=== PATIENT | female | born 1935 | race Caucasian/White ===

== ENCOUNTER → 2017-11-25 | Outpatient (CLI) | payer OTHER, MEDICARE | END | disposition home or self-care (01) | LOC: SHCH 15:52 | PROVIDERS: ATTEND Internal Medicine Cardiovascular Disease | DX: I51.7 Cardiomegaly (principal); I10 Essential (primary) hypertension | CPT/HCPCS: 93306 ==

== ENCOUNTER 2020-01-13 10:42 | Inpatient (IN) | payer OTHER, MEDICARE ==
[~2020-01-13] VITALS: Ht 162.6 cm; Wt 71.5 kg
[2020-01-13] MEDS ORDERED: ONDANSETRON HCL 4 MG/2 ML VIAL IVP PRN (15:15)
[2020-01-13] MEDS ORDERED: HYDRALAZINE HCL 20 MG/ML VIAL IV PRN (15:15)
[2020-01-13] MEDS ORDERED: LABETALOL 20 MG/4 ML DISP.SYRIN IV PRN (15:15)
[2020-01-13] MEDS ORDERED: LACTULOSE 20 GM/30 ML UDCUP PO PRN (15:15)
[2020-01-13] MEDS ORDERED: ZOLPIDEM TARTRATE 5 MG TAB PO PRN (15:15)
[2020-01-13] MEDS ORDERED: LOPERAMIDE HCL 2 MG CAP PO PRN (15:15)
[2020-01-13] MEDS: SODIUM CHLORIDE 0.9% 1000ML 1,000 ML IV SCH (15:15)
[2020-01-13] MEDS ORDERED: IPRATROPIUM/ALBUTEROL SULFATE 3 ML SOLUTION IH PRN (15:15)
[2020-01-13] MEDS: ZOSYN 3.375GM+NS 50ML 50 ML IV SCH (16:00)
[2020-01-13] MEDS ORDERED: ZOSYN 3.375GM+NS 50ML 50 ML IV ONE (16:45)
[2020-01-13] MEDS ORDERED: ONDANSETRON HCL 4 MG/2 ML VIAL ONE (22:54)
[2020-01-14] MEDS: ZOSYN 3.375GM+NS 50ML 50 ML IV SCH ×2 (04:00→16:00)
[2020-01-14] MEDS ORDERED: ZOSYN 3.375GM+NS 50ML 50 ML IV ONE ×2 (04:36→16:25)
[2020-01-14] MEDS: PANTOPRAZOLE SODIUM 40 MG TABLET.DR PO SCH (09:00)
--- NOTE | 2020-01-14 13:14 | NUR ---
DCP: HOME SW spoke to pt who states she lives independently at home alone. Pt states she has no DME or HH services, drives herself, PCP is Fatoumata Long at [facility] and she uses [facility] [employer]. Addendum: 01/14/20 at 1329 by LEONARDA DÍAZ SS Amended: Links added.
[2020-01-14] MEDS: SODIUM CHLORIDE 0.9% 1000ML 1,000 ML IV SCH (17:55)
[2020-01-15] VITALS (17 sets, daily range): BP systolic 105–149; BP diastolic 54–80; PULSE 76–84; RESP 16–20; TEMP 96.5–97.9
[2020-01-15] MEDS ORDERED: ZOSYN 3.375GM+NS 50ML 50 ML IV ONE ×2 (01:11→09:12)
[2020-01-15] MEDS: ZOSYN 3.375GM+NS 50ML 50 ML IV SCH ×2 (04:00→16:00)
[2020-01-15] MEDS: SODIUM CHLORIDE 0.9% 1000ML 1,000 ML IV SCH ×3 (07:15→21:18)
--- NOTE | 2020-01-15 07:36 | NUR ---
pt.still in ER,01/12, 01/13,01/15/2020.Awaiting patient to be transferred to regular medical floor to be able to initiate skilled Physical Therapy Evaluation as ordered by Heather Puente [facility] Addendum: 01/15/20 at 0739 by BRIE SAN, PT PT Amended: Links added.
[2020-01-15] MEDS: PANTOPRAZOLE SODIUM 40 MG TABLET.DR PO SCH (09:00)
[2020-01-15] MEDS ORDERED: PANTOPRAZOLE SODIUM 40 MG TABLET.DR ONE (09:12)
[2020-01-15] MEDS ORDERED: PROPOFOL 10 MG/ML 20ML VIAL IV ONE (11:14)
[2020-01-15] MEDS ORDERED: LIDOCAINE HCL 2% 20ML ONE (11:15)
[2020-01-15] MEDS ORDERED: MIDAZOLAM HCL 1 MG/ML 2ML VIAL ONE (11:15)
[2020-01-15] MEDS ORDERED: SUCCINYLCHOLINE 200MG/10ML SYR ONE (11:15)
[2020-01-15] MEDS ORDERED: FENTANYL CITRATE PF 50 MCG/1 ML 2ML VIAL ONE ×2 (11:15→11:58)
[2020-01-15] MEDS ORDERED: IOHEXOL-350 50ML VIAL IV ONE (11:25)
[2020-01-15] MEDS ORDERED: GLUCAGON 1MG KIT 1 MG ML ONE (11:30)
[2020-01-15] MEDS: INDOMETHACIN 50 MG SUPP.RECT RC SCH (12:05)
[2020-01-15] MEDS ORDERED: LACTATED RINGERS 1000ML 1,000 ML IV ONE (15:51)
--- NOTE | 2020-01-15 22:40 | NUR ---
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 WILL ENDORSE TO [facility] FOR TRANSFER PROCEEDINGS(MOT ETC.),PENDING OFFICIAL MD ORDER TO TRANSFER. Addendum: 01/16/20 at 0633 by CATIA ACEVEDO RN RN Amended: Links added.
[2020-01-16] VITALS (9 sets, daily range): BP systolic 120–143; BP diastolic 68–77; PULSE 91–97; RESP 16–20; TEMP 97.7–98.9
[2020-01-16] MEDS: ZOSYN 3.375GM+NS 50ML 50 ML IV SCH ×2 (03:11→16:25)
--- NOTE | 2020-01-16 07:30 | NUR ---
SURGICAL CONSULT DR Berg here spoke with pt about the plan of care ,also spoke with daughter Hoda Blanco concerning her Mothers plan of care and possible surgery on Saturday if the hepatic function test decreases,daughter and pt agree to plan
[2020-01-16] MEDS: PANTOPRAZOLE SODIUM 40 MG TABLET.DR PO SCH (10:32)
[2020-01-16] MEDS: INDOMETHACIN 50 MG SUPP.RECT RC SCH (11:30)
[2020-01-16] MEDS: SODIUM CHLORIDE 0.9% 1000ML 1,000 ML IV SCH (19:49)
--- NOTE | 2020-01-16 19:55 | NUR ---
PM Assessment Received pt, pleasantly conversant, denies discomfort. Routine assessment done, plan of care discuss, aware plan for surgery on Saturday. Pt made aware now on a diet as reported, heart health.
[2020-01-17] VITALS (9 sets, daily range): BP systolic 108–142; BP diastolic 61–78; PULSE 89–99; RESP 16–20; TEMP 97.9–99.1
[2020-01-17] MEDS: ZOSYN 3.375GM+NS 50ML 50 ML IV SCH ×2 (04:28→16:29)
--- NOTE | 2020-01-17 07:45 | NUR ---
NOTE AAOX3. DENIES PAIN OR DISCOMFORT. SHE REMAINS NPO. SHE IS JAUNDICE. TOTAL BILI WENT UP TO 12 TODAY. PATIENT REPORTS DARK COLOR URINE WELL BUT NO URINARY SYMPTOM. EXPLAINED TO HER THE REASON FOR THAT IS THE ELEVATED BILI LEVELS. WE ARE WAITING OR DR HIRSCH TO SEE IF PATIENT WILL HAVE SURGERY TOMORROW TO REMOVE GALLBLADDER.
[2020-01-17] MEDS: PANTOPRAZOLE SODIUM 40 MG TABLET.DR PO SCH (09:11)
[2020-01-17] MEDS: INDOMETHACIN 50 MG SUPP.RECT RC SCH (11:30)
[2020-01-17] MEDS: CETIRIZINE HCL 5 MG TABLET PO SCH (12:45)
[2020-01-17] MEDS: SODIUM CHLORIDE 0.9% 1000ML 1,000 ML IV SCH (12:46)
[2020-01-17] MEDS: FLUTICASONE PROPIONATE 50MCG/SPRAY 16 GM BOTTLE EN SCH (12:46)
--- NOTE | 2020-01-17 18:02 | NUR ---
NOTE PATIENT REMAINS STABLE, NO PAIN. NPO. SHE HAD MRCP THIS AM AND RESULTS WERE RELAYED TO DR HIRSCH FOR THEY WOULD DETERMINE WHETHER PATIENT WOULD UNDERGO CHOLECYSTECTOMY TOMORROW BUT DR HIRSCH GAVE ME AN ORDER TO NOTIFY PRIMARY TEAM OF HER RECOMMENDATIONS TO TRANSFER PATIENT TO ANOTHER FACILITY. I EXPLAINED TO THE PATIENT WHAT THE PLAN WAS NOW AND SHE IS VERY UNDERSTANDING. ALSO JUST FINISHED TALKING TO HER DAUGHTER WHO IS A NURSE IN ANOTHER FACILITY AND SHE WOULD LIKE TO SPEAK TO DR HIRSCH. I RELAYED THE MESSAGE TO DR HIRSCH WELL. I FAXED TRANSFER ORDER AND SPOKE TO GE [employer]FT LOAD CONTROLLER. HE WILL START PROCESS OF LOOKING FOR ACCEPTING PHYSICIAN.
[2020-01-17] MEDS: HYDROMORPHONE HCL 0.5 MG/0.5 ML ML IVP PRN (20:06)
[2020-01-18] VITALS (7 sets, daily range): BP systolic 133–153; BP diastolic 70–78; PULSE 85–96; RESP 18; TEMP 97.8–99.4
[2020-01-18] MEDS: HYDROMORPHONE HCL 0.5 MG/0.5 ML ML IVP PRN ×2 (01:01→19:28)
[2020-01-18] MEDS: SODIUM CHLORIDE 0.9% 1000ML 1,000 ML IV SCH ×2 (03:09→15:29)
[2020-01-18] MEDS: ZOSYN 3.375GM+NS 50ML 50 ML IV SCH ×2 (03:12→15:29)
[2020-01-18] MEDS: FLUTICASONE PROPIONATE 50MCG/SPRAY 16 GM BOTTLE EN SCH (08:58)
[2020-01-18] MEDS: PANTOPRAZOLE SODIUM 40 MG TABLET.DR PO SCH (08:59)
[2020-01-18] MEDS: CETIRIZINE HCL 5 MG TABLET PO SCH (08:59)
[2020-01-18] MEDS ORDERED: CETIRIZINE HCL 5 MG TABLET PO SCH (09:00)
[2020-01-18] MEDS: INDOMETHACIN 50 MG SUPP.RECT RC SCH (10:26)
--- NOTE | 2020-01-18 11:40 | NUR ---
MD ROUNDS DR. HIRSCH STATED PATIENT NEEDS TO TRANSFER TO [facility] FOR HEPATOBILIARY SURGEON FOR CHOLECYSTECTOMY. PER DR. HIRSCH, PATIENT MAY REQUIRE RESECTION OF THE BILIARY DUCT DUE TO POSSIBLE OBSTRUCTION. WHICH DR. HIRSCH STATED COULD NOT PERFORM. DENTAL ASSISTING INSTRUCTOR AND CHARGE NURSE MADE AWARE.
--- NOTE | 2020-01-18 14:37 | NUR ---
SPOKE TO DR. HIRSCH TO REPORT NO BEDS AVAILABLE AT [facility]. DR. HIRSCH STATED SHE WAS ALREADY NOTIFIED BY SHEEP AND WHEAT FARMER AND HAS CALLED DR. HOLLIDAY (HEPATOBILIARY SURGEON FROM [facility]) SEVERAL TIMES AND HAS NOT BE ABLE TO COMMUNICATE WITH HIM AT THIS TIME.
[2020-01-19] VITALS (24 sets, daily range): BP systolic 113–142; BP diastolic 63–80; PULSE 70–86; RESP 15–19; TEMP 97.1–98.5
[2020-01-19] MEDS: HYDROMORPHONE HCL 0.5 MG/0.5 ML ML IVP PRN (01:02)
[2020-01-19] MEDS: ZOSYN 3.375GM+NS 50ML 50 ML IV SCH ×2 (03:15→16:47)
[2020-01-19] MEDS: SODIUM CHLORIDE 0.9% 1000ML 1,000 ML IV SCH (04:58)
--- NOTE | 2020-01-19 05:48 | NUR ---
NO BOWEL MOVEMENT PATIENT UNABLE TO HAVE A BOWEL MOVEMENT POST LACTULOSE PO. PATIENT ASKED IF I COULD DIGITALLY DISIMPACT HER. I DID CHECK HER DIGITALLY WITH MY FEMALE PCP AT MY SIDE AND I DID FIND HARD IMPACTED STOOL. I PROCEEDED TO REMOVE HARD STOOL AND WAS ABLE TO REMOVE A MODERATE AMOUNT OF STOOL WHICH GAVE PATIENT RELIEF OF DISCOMFORT. WILL MONITOR IF PATIENT CAN HAVE A STOOL ON HER OWN.
[2020-01-19] MEDS ORDERED: POTASSIUM CHLORIDE 20MEQ/100ML 100 ML IV ONE (08:24)
[2020-01-19] MEDS ORDERED: LIDOCAINE HCL-MPF 1% 2ML VIAL ONE (08:24)
--- NOTE | 2020-01-19 08:33 | NUR ---
PROCEDURE PATIENT TRANSFERRED TO GI LAB BY IDA CURIEL FOR ERCP PROCEDURE BY DR. HUNTER.
--- NOTE | 2020-01-19 08:40 | NUR ---
POTASSIUM 20MEQ IV AND LIDOCAINE 1% GIVEN TO IDA CURIEL FROM GI LAB TO ADMINISTER BEFORE PROCEDURE FOR POTASSIUM LEVEL OF 3.[address] HUNTER.
[2020-01-19] MEDS: PANTOPRAZOLE SODIUM 40 MG TABLET.DR PO SCH (09:00)
[2020-01-19] MEDS: CETIRIZINE HCL 5 MG TABLET PO SCH (09:00)
[2020-01-19] MEDS: LIDOCAINE HCL-MPF 1% 2ML VIAL IV SCH (09:15)
[2020-01-19] MEDS ORDERED: POTASSIUM CHLORIDE 20 MEQ/100 ML BAG IV SCH (09:15)
[2020-01-19] MEDS ORDERED: PROPOFOL 10 MG/ML 20ML VIAL IV ONE (10:01)
[2020-01-19] MEDS ORDERED: IOHEXOL-350 50ML VIAL IV ONE (10:01)
[2020-01-19] MEDS ORDERED: SUCCINYLCHOLINE 200MG/10ML SYR ONE (10:02)
[2020-01-19] MEDS ORDERED: FENTANYL CITRATE PF 50 MCG/1 ML 2ML VIAL ONE ×2 (10:02→10:36)
[2020-01-19] MEDS ORDERED: MIDAZOLAM HCL 1 MG/ML 2ML VIAL ONE (10:02)
[2020-01-19] MEDS: INDOMETHACIN 50 MG SUPP.RECT RC SCH ×3 (10:40→12:59)
--- NOTE | 2020-01-19 11:35 | NUR ---
PROCEDURE REPORT RECEIVED FROM KIEL RN (PACU). PATIENT S/P ERCP UNDER GENERAL ANESTHESIA BY DR. HUNTER. BILIARY STENT PLACED IN CBD AND STENT IN GOOD POSITION. PATIENT STABLE AT THIS TIME.
--- NOTE | 2020-01-19 14:01 | NUR ---
REPORTED ERCP RESULTS TO DR. HIRSCH. STATED PATIENT WILL STILL NEED TO TRANSFERRED TO [facility] FOR SURGERY.
[2020-01-19] MEDS: FLUTICASONE PROPIONATE 50MCG/SPRAY 16 GM BOTTLE EN SCH (16:46)
[2020-01-20] VITALS (7 sets, daily range): BP systolic 126–140; BP diastolic 62–74; PULSE 75–96; RESP 17–20; TEMP 97.7–99.1
[2020-01-20] MEDS: ZOSYN 3.375GM+NS 50ML 50 ML IV SCH ×2 (03:14→15:26)
[2020-01-20] MEDS: SODIUM CHLORIDE 0.9% 1000ML 1,000 ML IV SCH ×3 (03:14→15:27)
[2020-01-20] MEDS: LIDOCAINE HCL-MPF 1% 2ML VIAL IV SCH (08:47)
[2020-01-20] MEDS: INDOMETHACIN 50 MG SUPP.RECT RC SCH (08:47)
[2020-01-20] MEDS: CETIRIZINE HCL 5 MG TABLET PO SCH (08:47)
[2020-01-20] MEDS: PANTOPRAZOLE SODIUM 40 MG TABLET.DR PO SCH (08:48)
[2020-01-20] MEDS: FLUTICASONE PROPIONATE 50MCG/SPRAY 16 GM BOTTLE EN SCH (09:32)
--- NOTE | 2020-01-20 10:51 | NUR ---
RD NOTIFICATION Pt NPO x 6 days. Pending procedure, to be transferred for higher level of care. Pt with normal bowel sounds. Abnormal LFT's, Cholecystitis, possible impacted biliary duct as per EMR. Recommend advance diet to Clear Liquid, Fat Free, Ensure Clear TID. Recommend advance diet as tolerated, to remain Low fat or Fat Free, Adv as medically feasible. Pt pending Procedure, unknown procedure date. Recommend PN if oral diet not medically feasible. RD to continue to monitor. Please notify/Contact as additional nutrition concerns arise. Thank you. Addendum: 01/20/20 at [address] RD Amended: Links added.
--- NOTE | 2020-01-20 11:47 | NUR ---
SPOKE WITH LISA, JAMESECE REGARDING NUTRITION AND ICE CHIPS. SHE CALLED AND WAS UPSET BECAUSE PT HAD NOT EATEN FOR 2 WEEKS. INFORMED LISA HAD INFORMED PT'S DAUGHTER, DAMIEN MEZA, OF CONSULTING DIETARY FOR TPN/PPN RECOMMENDATION AND INFORMED LISA SPOKE WITH PRIMARY DOCTOR AND MADE AWARE OF CONSULT. ALSO, MADE LISA AWARE OF NOTIFYING PRIMARY CARE, [facility], OF REQUEST TO CALL DAMIEN MEZA TODAY AFTER 4:30 P.M. NOTIFIED LISA LEFT HER PHONE NUMBER WELL JUST IN CASE OF MISSED CALL. INFORMED ASKED IF PATIENT COULD HAVE ICE CHIPS AND [facility] SAID TO ASK SURGEON. INFORMED LISA WAITING ON SURGEON TO CALL BACK TO ASK. WILL CONTINUE TO FOLLOW.
--- NOTE | 2020-01-20 12:03 | NUR ---
CALLED LISA AND INFORMED HER OF OK TO START CLEAR LIQUIDS PER DR. HIRSCH.
[2020-01-20] MEDS ORDERED: IOHEXOL-350 75 ML VIAL IV ONE (15:22)
[2020-01-20] MEDS: HYDROMORPHONE HCL 0.5 MG/0.5 ML ML IVP PRN (19:36)
[2020-01-21] VITALS: BP 143/69; PULSE 95; RESP 18; TEMP 99.3
[2020-01-21] MEDS: HYDROMORPHONE HCL 0.5 MG/0.5 ML ML IVP PRN ×2 (01:55→05:19)
[2020-01-21] MEDS: ZOSYN 3.375GM+NS 50ML 50 ML IV SCH (03:15)
[2020-01-21 04:00] VITALS: BP 147/80; PULSE 91; RESP 18; TEMP 98.9
[2020-01-21 07:00] VITALS: BP 144/79; PULSE 86; RESP 16; TEMP 98.4
[2020-01-21 07:01] VITALS: PULSE 85; RESP 18
[2020-01-21] MEDS ORDERED: NACL IV SCH (07:45)
[2020-01-21] MEDS ORDERED: DEXTROSE IV SCH (07:45)
[2020-01-21] MEDS ORDERED: POTASSIUM CHLORIDE IV SCH (07:45)
== END 2020-01-21 10:00 | disposition left against medical advice (07) | DRG 445 ==
LOC: EDH 10:42 → OBSVTOIN 14:50 → EDHIP 14:50 → 3DH 01-15 13:27
PROVIDERS: ADMIT Internal Medicine; ATTEND Internal Medicine
PROC: 0F798ZZ Dilation of Common Bile Duct, Via Natural or Artificial Opening Endoscopic (ICD-10-PCS; principal; 2020-01-15)
PROC: BF111ZZ Fluoroscopy of Biliary and Pancreatic Ducts using Low Osmolar Contrast (ICD-10-PCS; 2020-01-15)
PROC: 0F798DZ Dilation of Common Bile Duct with Intraluminal Device, Via Natural or Artificial Opening Endoscopic (ICD-10-PCS; 2020-01-19)
PROC: BF111ZZ Fluoroscopy of Biliary and Pancreatic Ducts using Low Osmolar Contrast (ICD-10-PCS; 2020-01-19)
DX: K80.63 Calculus of gallbladder and bile duct with acute cholecystitis with obstruction (principal); N17.9 Acute kidney failure, unspecified; E87.1 Hypo-osmolality and hyponatremia; Z20.828 Contact with and (suspected) exposure to other viral communicable diseases; Z53.29 Procedure and treatment not carried out because of patient's decision for other reasons; Z85.828 Personal history of other malignant neoplasm of skin; Z90.710 Acquired absence of both cervix and uterus